=== PATIENT | male | born 1980 | race Asian ===

== ENCOUNTER 2025-09-15 10:47 | Outpatient (AMB) | payer OTHER, SELFPAY ==
[2025-09-15 10:51] VITALS: BMI 24.3
--- NOTE | 2025-09-15 10:51 | A.PHYSOV_ITS ---
Vital Signs 09/15/25 10:51 Height 5 ft 8 in Weight 160 lb BMI 24.3 Intake Visit Reasons: NPV CHRONIC MIDLINE LOW BACK PAIN W/OUT SCIATICA Intake Note: Patient a 45 year old patient in office today as a new patient for mid line low back pain. Automatic Centrifugal Station Operator Required: No Allergies No Known Allergies Allergy (Verified 09/15/25 10:50) HPI Comments Details: History of Present Illness The patient is a 45-year-old individual presenting with chronic low back pain and sciatica. The patient reports experiencing low back pain for approximately eight months, which began as a pinching sensation and has progressively worsened. The pain is primarily located in the lumbar region and is exacerbated by activities such as bending and applying pressure. The patient describes the pain as persistent and irritating, with occasional radiation down both legs, predominantly affecting the right side. The patient has been undergoing physical therapy for over two months, which has provided some relief but not complete resolution of symptoms. The patient has also visited urgent care and has been prescribed painkillers, although the patient prefers to avoid medications like ibuprofen unless the pain is severe. Pain is rated 8/10 at the worst moments. The patient has a history of prediabetes, which is being managed with dietary modifications, although adherence is inconsistent. There is a family history of back surgeries, although the patient has not undergone any surgical interventions. Pain Description - Onset: Approximately eight months ago - Quality: Pinching, persistent, irritating - Location: Lumbar region, with radiation to both legs, predominantly the right - Exacerbating factors: Bending, applying pressure - Relieving factors: Physical therapy provides some relief Results - Imaging: X-rays did not reveal significant findings [facility] Medical History (Updated 09/15/25 @ 11:16 by Kolby Shearer DO) Lumbar radiculitis Lumbar disc herniation Surgical History (Updated 09/11/25 @ 09:05 by Lucinda Martin MA) History of nasal surgery Social History (Updated 09/11/25 @ 09:08 by Lucinda Martin MA) Household Members: Spouse Alcohol intake: current Alcohol intake frequency: does not drink Patient Tobacco Use Status: Never used Tobacco Current occupational status: employed Review of Systems Narrative Review of Systems - Musculoskeletal: Reports persistent low back pain, occasional radiation to legs - Endocrine: Reports prediabetes Denies change in bowel bladder habits, denies fever or chills, denies uncontrolled depression or suicidal ideation Physical Exam Exam Exam: Physical Exam - Musculoskeletal: Pain elicited upon bending and pressure application, particularly in the lumbar region - Neurological: Reflexes symmetric, mild weakness noted in big toe extension on the right side Increased tightness of the right hamstring muscles compared to the left hamstring muscles. Lumbar extension was slightly restricted. SI provocative maneuvers were negative. Pain with palpation over lower lumbar spinous processes. Patient demonstrated no upper motor neuron signs. He was able to perform heel walk and toe walk. Gait was without antalgia. Vital Signs: BMI result Body Mass Index 24.3 Assessment & Plan Assessment & Plan (1) Lumbar disc herniation: Code(s): M51.26 - Other intervertebral disc displacement, lumbar region Category: Medical (2) Lumbar radiculitis: Code(s): M54.16 - Radiculopathy, lumbar region Category: Medical Plan Pain Management - Affect: Pain is persistent and irritating, impacting daily activities - Analgesia: Painkillers prescribed, patient prefers to avoid unless severe - Adverse Effects: None reported - Activities of Daily Living: Pain affects bending and pressure application activities - Aberrant Drug Related Behaviors: None reported Plan Patient was informed and verbally consented to the use of an ambient scribe for clinic note documentation during this visit. 1. Chronic Low Back Pain The patient has been experiencing chronic low back pain for approximately eight months, with symptoms exacerbated by bending and pressure application. Physical therapy has been initiated, providing some relief, but symptoms persist. An MRI of the lumbar spine has been ordered to further evaluate the underlying cause of the pain. 2. Sciatica The patient reports occasional radiation of pain to both legs, predominantly affecting the right side, consistent with sciatica. The MRI will help assess any nerve involvement contributing to these symptoms. 3. Prediabetes The patient has a history of prediabetes, with dietary modifications being inconsistently followed. Continued monitoring of blood glucose levels and adherence to dietary recommendations are advised. Discussion Notes I discussed with the patient the chronic nature of the low back pain and the potential for sciatica involvement. We reviewed the limited findings from the X- rays and the need for an MRI to better understand the underlying issues. I explained that the MRI would provide a clearer picture of any nerve involvement or structural abnormalities. We also discussed the importance of continuing physical therapy and monitoring prediabetes through dietary management. The patient was advised to schedule a follow-up appointment after the MRI results are available to discuss further management options. Patient Instructions - Continue with physical therapy sessions as scheduled. - Schedule an MRI at [facility] as discussed. - Monitor blood glucose levels and adhere to dietary recommendations for prediabetes management. - Follow up with the clinic after MRI results are available. Orders: Orders MR lumbar spine wo con Today M51.26 - Other intervertebral disc displacement, lumbar region, M54.16 - Radiculopathy, lumbar region Coding Level of Care Code Tele New Pt Level 4 (76207) Complex visit Add On G2211 Diagnoses Lumbar disc herniation M51.26 Lumbar radiculitis M54.16
--- OUTSIDE RECORDS SUMMARY | 2025-09-15 13:57 | XMS_ITS | Encounter Summary ---
Author Organization [facility] Address [address] [place] [address] Care Team Providers Care Senior Manufacturing Technician Name Role Phone Pavel Chirinos MD Primary Care Provider [phone] Encounter Details Date Type Department Care Team (Late Contact Info) Description 08/13/2025 Results Follow-Up Internal Medicine [address] [phone] Pavel Chirinos MD [address] [place] [phone] Social History Tobacco Use Types Packs/Day Years Used Date Smoking Tobacco: Never Smokeless Tobacco: Never Alcohol Use Standard Drinks/Week Comments Never 0 (1 standard drink = 0.6 oz pur e alcohol) Education Answer Date Recorded What is the highest level of school you have completed or the highest degree you have received? Bachelor's degree (e.g., BA, AB, BS) 07/31/2025 Sex and Gender Information Value Date Recorded Sex Assigned at Not on file Legal Sex Male 8:48 PM EST Gender Identity Not on file Sexual Orientation Not on file documented as of this encounter Plan of Treatment Upcoming Encounters Date Type Department Care Team (Late Contact Info) Description 02/01/2026 3:00 PM EDT Office Visit Internal Medicine [address] [phone] Pavel Chirinos MD [address] [place] [phone] documented as of this encounter Visit Diagnoses Not on filedocumented in this encounter Care Teams Senior Manufacturing Technician Relationship Specialty Start Date End Date Pavel Chirinos MD [address] [place] [phone] PCP - General 07/18/23 documented as of this encounter
--- OUTSIDE RECORDS SUMMARY | 2025-09-15 13:57 | XMS_ITS | Clinical Summary ---
Author Organization [facility], Address [address] [place] [address] [place] [address] Phone Care Team Providers Care It Infrastructure Manager Name Role Phone Pavel Chirinos Primary Care Provider [phone] Allergies No known active allergies Medications cyanocobalamin 2000 MCG tablet Take 2,000 mcg by mouth in the morning. 4 Active atorvastatin (LIPITOR) 20 MG tablet Take 20 mg by mouth in the morning. 4 Active ergocalciferol 1.25 MG (70242 UT) capsule Take 50,000 Units by mouth 1 (one) time per week Active pantoprazole (PROTONIX) 40 MG EC tablet Take 40 mg by mouth 1 (one) time each day before breakfast Do not crush, chew, or split. Active Active Problems Problem Noted Date Diagnosed Date Vitamin D deficiency 09/27/2023 Prediabetes 09/27/2023 Mixed hyperlipidemia 09/27/2023 Cobalamin deficiency 09/27/2023 Immunizations Immunization Administration Dates Next Due Moderna SARS-COV-2 10/24/2021,07/30/2021, 021 TD Preservative Free 02/10/2019 Tdap 06/24/2024 Family History Medical History Relation Comments Asthma Father Diabetes Mother Relation Status Comments Father Mother Social History Tobacco Use Types Packs/Day Years Used Date Smoking Tobacco: Never Smokeless Tobacco: Never Tobacco Cessation:Counseling Given: Not Answered Sex and Gender Information Value Date Recorded Sex Assigned at Not on file Legal Sex Male 2:27 PM EDT Gender Identity Not on file Sexual Orientation Not on file Plan of Treatment Upcoming Encounters Date Type Department Care Team (Late st Contact Info) Description 11/25/2025 1:30 PM EST Office Visit [facility], [address] [place] [phone] Filipe Werner MD [address] [place] [phone] Health Maintenance Due Date Last Done Comments Hepatitis B Vaccine (1 of 3 - 19+ 3-dose series) 04/23 Pneumococcal Vaccine: Peds ( 0 to 5 Years) and At-Risk Patients (6 to 49 Years) (1 of 2 - PCV) 2000 Influenza Vaccine (#1) 2025 Insurance [employer] Care Teams It Infrastructure Manager Relationship Specialty Start Date End Date Pavel Chirinos [address] [place] [phone] PCP - General 07/14/24
--- OUTSIDE RECORDS SUMMARY | 2025-09-15 13:57 | XMS_ITS | Encounter Summary ---
Author Organization [facility] Address [address] [place] [address] Care Team Providers Care Curer Foam Rubber Name Role Phone Pavel Chirinos MD Primary Care Provider [phone] Encounter Details Date Type Department Care Team ([facility] Contact Info) Description 08/12/2025 Results Follow-Up Internal Medicine - [place] [address] [facility] [address] [place] [phone] Pavel Chirinos MD [address] [place] [phone] Social History Tobacco Use Types Packs/Day Years [...] on file documented as of this encounter Ordered Prescriptions Prescription Sig Dispense Quantity Refills Last Filled Start Date End Date cholecalciferol (Vitamin D3) 50 mcg (2,000 unit) tablet Take 1 tablet (2,000 Units total) by mouth 1 (one) time each day. 90 tablet 3 08/12/2025 08/12/2026 documented in this encounter Plan of Treatment Upcoming Encounters Date Type Department Care Team ([facility] Contact Info) Description 02/01/2026 3:00 PM EDT Office Visit Internal Medicine - [place] [address] [phone] Pavel Chirinos MD [address] [place] [phone] documented as of this encounter Visit Diagnoses Not on filedocumented in this encounter Care Teams Curer Foam Rubber Relationship Specialty Start Date End Date Pavel Chirinos MD [address] [phone] PCP - General 07/18/23 documented as of this encounter
--- OUTSIDE RECORDS SUMMARY | 2025-09-15 13:57 | XMS_ITS | Encounter Summary ---
Author Organization [facility] Address [address] [place] [address] Phone Care Team Providers Care Slate Roofer Name Role Phone Pavel Chirinos Primary Care Provider [phone] Encounter Details Date Type Department Care Team (Late Contact Info) Description 07/14/2024 Documentation Only [facility] [address] [place] [address] Saida Pedroza [place] [address] [place] [phone] Social History Tobacco Use Types Packs/Day Years Used Date Smoking Tobacco: Never Assessed Sex and Gender Information Value Date Recorded Sex Assigned at Not on file Legal Sex Male 2:27 PM EDT Gender Identity Not on file Sexual Orientation Not on file documented as of this encounter Plan of Treatment Upcoming Encounters Date Type Department Care Team (Late Contact Info) Description 11/25/2025 1:30 PM EST Office Visit [facility] [address] [place] [address] Filipe Werner MD [address] [place] [phone] documented as of this encounter Visit Diagnoses Not on filedocumented in this encounter Care Teams Slate Roofer Relationship Specialty Start Date End Date Pavel Chirinos [address] [place] [phone] PCP - General 07/14/24 documented as of this encounter
--- OUTSIDE RECORDS SUMMARY | 2025-09-15 13:57 | XMS_ITS | Clinical Summary ---
Author Organization Patient Business Ser [facility] [place] Address [address] [place] [address] Care Team Providers Care Sandblaster Stone Name Role Phone Pavel Chirinos MD Primary Care Provider [phone] Allergies No known active allergies Medications atorvastatin (LIPITOR) 20 mg tablet TAKE 1 TABLET BY MOUTH ONCE DAILY 90 tablet 3 5 Active hydrOXYzine HCL (ATARAX) 25 mg tablet Take 1 tablet (25 mg total) by mouth if needed for anxiety (insomnia). 30 tablet 3 5 Active cholecalciferol (Vitamin D3) 50 mcg (2,000 unit) tablet Take 1 tablet (2,000 Units total) by mouth 1 (one) time each day. 90 tablet 3 5 08/12/20 26 Active cyanocobalamin (VITAMIN B-12) 1,000 mcg tablet TAKE 2 TABLETS BY MOUTH EVERY DAY 180 tablet 3 5 Active cyanocobalamin (VITAMIN B-12) 2,000 mcg tablet Take 1 tablet (2,000 mcg total) by mouth 1 (one) time each day. 4 08/24/20 25 Discontinue d(Duplicate order) cyclobenzaprine (FLEXERIL) 5 mg tablet Take 1 tablet (5 mg total) by mouth 3 (three) times a day if needed for muscle spasms. 30 tablet 2 5 08/26/20 25 Active Problems Problem Noted Date Diagnosed Date B12 deficiency 09/27/2023 Mixed hyperlipidemia 09/27/2023 Prediabetes 09/27/2023 Vitamin D deficiency 09/27/2023 Encounters Date Type Department Care Team Description 08/13/2025 Results Follow-Up Internal Medicine - [facility] [address] [phone] Pavel Chirinos MD 08/12/2025 Results Follow-Up Internal Medicine - [facility] 175 [facility] [address] [place] [address] Pavel Chirinos MD 08/11/2025 3:08 PM EDT - 08/11/2025 11:59 PM EDT Hospital Encounter Xray [address] [place] [phone] Chronic midline low back pain without sciatica Discharge Disposition: Home or Self Care 07/31/2025 8:30 AM EDT Office Visit Internal Medicine [facility] [address] [phone] Pavel Chirinos MD Encounter for annual physical exam (Primary Dx); Mixed hyperlipidemia; Prediabetes; Other fatigue; Vitamin D deficiency; B12 deficiency; Chronic midline low back pain without sciatica; Chronic right shoulder pain; Insomnia, unspecified type; Need for prophylactic vaccination and inoculation against influenza 07/09/2025 Telephone Internal Medicine - [facility] [address] [phone] Judy Enamorado MA from Last 3 Months Immunizations Immunization Administration Dates Next Due Influenza trivalent, MDCK, 0 .5mL, preservative free (Flucelvax) 6mo and older 07/31/2025 Moderna SARS-CoV-2 COVID-19, mRNA, LNP-S, preservative free 10/24/2021,07/30/2021,02/12/2021 Tdap Tetanus diptheria acell ular pertussis (Boostrix; Adacel) 7yo and older 06/24/2024 Surgical History Surgery Date Site/Laterality Comments OTHER SURGICAL HISTORY N/A PROCEDURE: HISTORY OTHER; COMMENT: nasal surgery Medical History Medical History Date Comments Mixed hyperlipidemia 09/27/2023 DX:Mixed hy perlipidemia Vitamin D deficiency 09/27/2023 DX:Vitamin D deficiency Prediabetes 09/27/2023 DX:Prediabetes Family History Medical History Relation Name Comments Asthma Father Diabetes Mother Other: hld, Mother Relation Name Status Comments Father Alive Maternal Grandfather Maternal Grandmother Mother Alive Paternal Grandfather Paternal Grandmother Social History Tobacco Use Types Packs/Day Years [...] on file Sexual Orientation Not on file Obstetrics History Last Filed Vital Signs Vital Sign Reading Time Taken Comments Blood Pressure 102/70 07/31/2025 8:17 AM EDT Pulse 74 07/31/2025 8:17 AM EDT Temperature 36.6 C (97.8 F) 07/31/2025 8:17 AM EDT Respiratory Rate - - Oxygen Saturation 97% 07/31/2025 8:17 AM EDT Inhaled Oxygen Concentration - - Weight 81.6 kg (180 lb) 07/31/2025 8:17 AM EDT Height 172.7 cm (5' 8 ) 07/28/2024 2:23 PM EDT Body Mass Index 27.37 07/28/2024 2:23 PM EDT Plan of Treatment Upcoming Encounters Date Type Department Care Team (Late st Contact Info) Description 02/01/2026 3:00 PM EDT Office Visit Internal Medicine - [address] [place] [address] Pavel Chirinos MD [address] [place] [phone] Health Maintenance Due Date Last Done Comments Hepatitis B Vaccines (1 of 3 - 19+ 3-dose series) 2000 HPV Vaccines (1 - 3-dose SCDM series) 2008 HIV Screening 09/27/2023 COVID-19 Vaccine ( season) 2025 10/24/2021, 07/30/2021, 03/12/2021, Additional history exists Depression Screening 10/21/2025 Postpon ed from 10/22/2024 (Not clinically appropriate to address at this time) Social Influencers of Health Screening 07/31/2026 07/31/2025 Cholesterol Screening (Lipid Panel) 08/11/2030 08/11/2025, 06/25/2024, 06/25/2024 DTaP,Tdap,and Td Vaccines (3 - Td or Tdap) 06/24/2034 06/24/2024, 02/10/2019 RSV Immunization Adult Patients (1 - 1-dose 75+ series) 2056 Hepatitis C Screening Completed 09/26/2023 Influenza Vaccine Completed 07/31/2025 HIB Vaccines Aged Out No longer eligi ble based on patient's age to complete this topic Hepatitis A Vaccines Aged Out No long er eligible based on patient's age to complete this topic IPV Vaccines Aged Out No longer eligi ble based on patient's age to complete this topic MMR Vaccines Aged Out No longer eligi ble based on patient's age to complete this topic Meningococcal ACWY Vaccine Aged Out N o longer eligible based on patient's age to complete this topic Meningococcal B Vaccine Aged Out No l onger eligible based on patient's age to complete this topic Pneumococcal Vaccine: Pediatrics (0 to 5 Years) and At-Risk Patients (6 to 49 Years) Aged Out No longer eligible b ased on patient's age to complete this topic RSV Immunization Patients Under 20 months Aged Out No longer eligible b ased on patient's age to complete this topic Varicella Vaccines Aged Out No longer eligible based on patient's age to complete this topic Procedures Procedure Name Priority Date/Time Associated Diagnosis Comments XR LUMBAR SPINE 4+ VIEWS Routine 08/11/2025 3:22 PM EDT Chronic midline low back pain without sciatica CBC WITH AUTO DIFFERENTIAL Routine 08/11/2025 2:51 PM EDT Encounter for annual physical exam Prediabetes Mixed hyperlipidemia HEMOGLOBIN A1C Routine 08/11/2025 2:51 PM EDT Encounter for annual physical exam Prediabetes Mixed hyperlipidemia VITAMIN D 25 HYDROXY Routine 08/11/2025 2:51 PM EDT Encounter for annual physical exam Prediabetes Vitamin D deficiency Mixed hyperlipidemia THYROID STIMULATING HORMONE WITH REFLEX TO FREE T4 AND FREE T3 Routine 08/11/2025 2:51 PM EDT Encounter for annual physical exam Prediabetes Mixed hyperlipidemia VITAMIN B12 Routine 08/11/2025 2:51 PM EDT Encounter for annual physical exam Prediabetes B12 deficiency Mixed hyperlipidemia COMPREHENSIVE METABOLIC PANEL Routine 08/11/2025 2:51 PM EDT Encounter for annual physical exam Prediabetes Mixed hyperlipidemia LIPID PANEL WITH REFLEX TO DIRECT LDL Routine 08/11/2025 2:51 PM EDT Encounter for annual physical exam Prediabetes Mixed hyperlipidemia CBC AND DIFFERENTIAL Routine 08/11/2025 2:51 PM EDT Encounter for annual physical exam Prediabetes Mixed hyperlipidemia HEPATITIS C SCREENING Routine 09/26/2023 from Last 3 Months or Most Recently Relevant to Health Maintenance Results * XR Lumbar Spine 4+ Views (08/11/2025 3:22 PM EDT) Anatomical Region Laterality Modality Spine, L-spine Radiographic Cary ging 08/13/2025 7:38 AM EDT Impressions 08/13/2025 7:39 AM EDT Limited range of motion. Otherwise, normal examination. There is no abnormal relative bony motion with flexion and extension. Code 31246 -------- FINAL REPORT -------- Dictated By: Scotty Woods Dictated Date: 08/13/2025 07:38 ET Assigned Physician: Scotty Woods Reviewed and Electronically Signed By: Scotty Woods Signed Date: 08/13/2025 07:39 ET Workstation ID: [id number] Transcribed By: Self Edit Transcribed Date: 08/13/2025 07:38 ET Narrative 08/13/2025 7:39 AM EDT HISTORY: The patient is a 45-year-old male with low back pain. No history of trauma is provided. FINDINGS: Lateral views of the lumbosacral spine in neutral, flexion, extension positions, along with an AP view, are obtained. The study demonstrates normal alignment of the bony structures. There is no abnormal relative bony motion with flexion and extension. Range of motion is limited. No fracture is seen and there is no osteolytic or osteoblastic lesion. The disc spaces are well-maintained. Procedure Note Scotty Woods MD - 08/13/2025 HISTORY: The patient is a 45-year-old male with low back pain. No historyof trauma is provided. FINDINGS: Lateral views of the lumbosacral spine in neutral, flexion,extension positions, along with an AP view, are obtained. The studydemonstrates normal alignment of the bony structures. There is no abnormalrelative bony motion with flexion and extension. Range of motion islimited. No fracture is seen and there is no osteolytic or osteoblasticlesion. The disc spaces are well-maintained. IMPRESSION: Limited range of motion. Otherwise, normal examination. There is noabnormal relative bony motion with flexion and extension. Code 03174 -------- FINAL REPORT -------- Dictated By: Scotty Woods Dictated Date: 08/13/2025 07:38 ET Assigned Physician: Scotty Woods Reviewed and Electronically Signed By: Scotty Woods Signed Date: 08/13/2025 07:39 ET Workstation ID: [id number] Transcribed By: Self Edit Transcribed Date: 08/13/2025 07:38 ET us Pavel Chirinos MD IMG XR PROCEDURES Final Result * Thyroid stimulating hormone with reflex to free t4 and free t3 (08/11/2025 2:51 PM EDT) TSH 2.10 0.40 - 4.00 mcIU/mL LAB CHEMISTRY METHOD 08/11/2025 7:51 PM EDT [facility] Blood Venous blood specimen / Unknown Venipuncture / Unknown 08/11/2025 2:51 PM EDT 08/11/2025 2:51 PM EDT Pavel Chirinos MD LAB BLOOD ORDERABLES Final Resul t Performing Organization Address City/[facility]/ZIP Co de Phone Number [facility] [address] [place] [address], [place] [phone] * Lipid panel with reflex to direct LDL (08/11/2025 2:51 PM EDT) Cholesterol 150 0 - 200 mg/dL LAB CHEMISTRY METHOD 08/11/2025 7:[address] [facility] Triglycerides 110 0 - 150 mg/dL LAB CHEMISTRY METHOD 08/11/2025 7:[address] [facility] HDL 50 >=40 mg/dL LAB CHEMISTRY METHOD 08/11/2025 7:[address] [facility] LDL Calculated 78 0 - 100 mg/dL LAB CHEMISTRY METHOD 08/11/2025 7:[address] [facility] Comment:Estimated LDL Calcul ated using equation: Total cholesterol - HDL cholesterol - (Triglycerides/5) VLDL Cholesterol Dameon 22 mg/dL LAB CHEMISTRY METHOD 08/11/2025 7:[address] [facility] Non HDL Chol. (LDL+VLDL) 100 <145 mg/dL LAB CHEMISTRY METHOD 08/11/2025 7:[address] [facility] Chol/HDL Ratio 3.0 0.0 - 4.4 LAB CHEMISTRY METHOD 08/11/2025 7:[address] [facility] Blood Venous blood specimen / Unknown Venipuncture / Unknown 08/11/2025 2:51 PM EDT 08/11/2025 2:51 PM EDT Pavel Chirinos MD LAB BLOOD ORDERABLES Final Resul t Performing Organization Address City/[facility]/ZIP Co de Phone Number [facility] [address] [place] [address], [place] [phone] * (ABNORMAL) CBC auto differential (08/11/2025 2:51 PM EDT) [facility] WBC 7.0 4.8 - 10.8 K/mcL LAB HEMETOLOGY METHOD 08/11/2025 6:[address] [facility] RBC 5.00 4.50 - 5.50 M/mcL LAB HEMETOLOGY METHOD 08/11/2025 6:[address] [facility] Hemoglobin 14.3 13.5 - 17.5 g/dL LAB HEMETOLOGY METHOD 08/11/2025 6:[address] [facility] Hematocrit 44.8 42.0 - 54.0 % LAB HEMETOLOGY METHOD 08/11/2025 6:[address] [facility] MCV 89.6 79.0 - 98.0 FL LAB HEMETOLOGY METHOD [facility]/11[facility]2025 [facility] MCH 28.6 27.0 - 32.0 pcg LAB HEMETOLOGY METHOD 08/11/2025 6:12 [facility] MCHC 31.9(L) 32.0 - 37.0 g/dL LAB HEMETOLOGY METHOD 08/11/2025 6:12 [facility] RDW 12.7 11.0 - 15.0 % LAB HEMETOLOGY METHOD 08/11/2025 6:[address] [facility] Platelets 260 130 - 400 K/mcL LAB HEMETOLOGY METHOD 08/11/2025 6:[address] [facility] MPV 10.1 7.0 - 11.0 FL LAB HEMETOLOGY METHOD 08/11/2025 6:12 [facility] NRBC 0.0 <1.0 % LAB HEMETOLOGY METHOD 08/11/2025 6:[address] [facility] NRBC Absolute 0.00 <0.10 K/mcL LAB HEMETOLOGY METHOD 08/11/2025 6:[address] [facility] Neutrophils Relative 38.8 % LAB HEMETOLOGY METHOD 08/11/2025 6:[address] [facility] Lymphocytes Relative 48.1 % LAB HEMETOLOGY METHOD 08/11/2025 6:[address] [facility] Monocytes Relative 8.0 % LAB HEMETOLOGY METHOD 08/11/2025 6:[address] [facility] Eosinophils Relative 4.6 % LAB HEMETOLOGY METHOD 08/11/2025 6:[address] [facility] Basophils Relative 0.4 % LAB HEMETOLOGY METHOD 08/11/2025 6:12 PM [facility] Immature Granulocytes Relative 0.1 % LAB HEMETOLOGY METHOD 08/11/2025 6:12 [facility] Neutrophils Absolute 2.73 1.50 - 7.00 K/mcL LAB HEMETOLOGY METHOD 08/11/2025 6:[address] [facility] Lymphocytes Absolute 3.38 1.00 - 5.00 K/mcL LAB HEMETOLOGY METHOD 08/11/2025 6:12 PM [facility] Monocytes Absolute 0.56 0.20 - 1.00 K/mcL LAB HEMETOLOGY METHOD 08/11/2025 6:[address] [facility] Eosinophils Absolute 0.32 0.00 - 0.50 K/mcL LAB HEMETOLOGY METHOD 08/11/2025 6:[address] [facility] Basophils Absolute 0.03 0.00 - 0.20 K/mcL LAB HEMETOLOGY METHOD 08/11/2025 6:12 PM [facility] Immature Granulocytes Absolute 0.01 0.00 - 0.03 K/mcL LAB HEMETOLOGY METHOD 08/11/2025 6:[address] [facility] Blood Venous blood specimen / Unknown Venipuncture / Unknown 08/11/2025 2:51 PM EDT 08/11/2025 2:51 PM EDT us Pavel Chirinos MD LAB BLOOD ORDERABLES Final Resul t Performing Organization Address City/[facility]/ZIP Co de Phone Number [facility] [address] [place] [address], [place] [phone] * (ABNORMAL) Vitamin D 25 hydroxy (08/11/2025 2:51 PM EDT) Vit D, 25-Hydroxy 18.6(L) 30.0 - 80.0 ng/mL LAB CHEMISTRY METHOD 08/11/2025 7:[address] [facility] Blood Venous blood specimen / Unknown Venipuncture / Unknown 08/11/2025 2:51 PM EDT 08/11/2025 2:51 PM EDT Pavel Chirinos MD LAB BLOOD ORDERABLES Final Resul t Performing Organization Address [facility] Co de Phone Number [facility] [address] [place] [address], [place] [phone] * Hemoglobin A1c (08/11/2025 2:51 PM EDT) Hemoglobin A1C 6.4 <6.5 % LAB CHEMISTRY METHOD 08/12/2025 12:[address] [facility] Mean Bld Glu Estim. 137 mg/dL LAB CHEMISTRY METHOD 08/12/2025 12:[address] [facility] Blood Venous blood specimen / Unknown Venipuncture / Unknown 08/11/2025 2:51 PM EDT 08/11/2025 2:51 PM EDT Pavel Chirinos MD LAB BLOOD ORDERABLES Final Resul t Performing Organization Address City/State/[facility] Co de Phone Number [facility] [address] [place] [address], [place] [phone] * Vitamin B12 (08/11/2025 2:51 PM EDT) [facility] Vitamin B-12 610 250 - 900 pcg/mL LAB CHEMISTRY METHOD 08/11/2025 7:[address] [facility] Blood Venous blood specimen / Unknown Venipuncture / Unknown 08/11/2025 2:51 PM EDT 08/11/2025 2:51 PM EDT Pavel Chirinos MD LAB BLOOD ORDERABLES Final Resul t Performing Organization Address [facility] Co de Phone Number [facility] [address] [place] [address], [place] [phone] * Comprehensive metabolic panel (08/11/2025 2:51 PM EDT) [facility] Sodium 139 133 - 145 mmol/L LAB CHEMISTRY METHOD 08/11/2025 7:[address] [facility] Potassium 4.5 3.5 - 5.5 mmol/L LAB CHEMISTRY METHOD 08/11/2025 7:23 PM [facility] Chloride 109 96 - 110 mmol/L LAB CHEMISTRY METHOD 08/11/2025 7:[address] [facility] CO2 27 21 - 32 mmol/L LAB CHEMISTRY METHOD 08/11/2025 7:[address] [facility] Anion Gap 3 3 - 11 LAB CHEMISTRY METHOD 08/11/2025 7:23 PM [facility] Glucose 91 70 - 100 mg/dL LAB CHEMISTRY METHOD 08/11/2025 7:23 PM [facility] BUN 13 5 - 25 mg/dL LAB CHEMISTRY METHOD 08/11/2025 7:[address] [facility] Creatinine 1.15 0.70 - 1.30 mg/dL LAB CHEMISTRY METHOD 08/11/2025 7:23 PM [facility] eGFR 80 >=60 mL/min/1. 73m2 LAB CHEMISTRY METHOD 08/11/2025 7:23 PM [facility] Comment:Calculation based on the Chronic Kidney Disease Epidemiology Collaboration (CKD-EPI) equation refit without adjustment for race. BUN/Creatinine Ratio 11.3 LAB CHEMISTRY METHOD 08/11/2025 7:23 PM [facility] Calcium 9.8 8.5 - 10.5 mg/dL LAB CHEMISTRY METHOD 08/11/2025 7:23 PM [facility] AST (SGOT) 24 10 - 42 unit/L LAB CHEMISTRY METHOD 08/11/2025 7:23 PM [facility] ALT (SGPT) 46 10 - 60 unit/L LAB CHEMISTRY METHOD 08/11/2025 7:23 PM [facility] Alkaline Phosphatase 81 42 - 121 unit/L LAB CHEMISTRY METHOD 08/11/2025 7:23 PM [facility] Total Protein 7.3 6.0 - 8.0 g/dL LAB CHEMISTRY METHOD 08/11/2025 7:23 PM [facility] Albumin 4.4 3.2 - 5.0 g/dL LAB CHEMISTRY METHOD 08/11/2025 7:23 PM [facility] Total Bilirubin 0.9 0.0 - 1.4 mg/dL LAB CHEMISTRY METHOD 08/11/2025 7:23 PM [facility] Blood Venous blood specimen / Unknown Venipuncture / Unknown 08/11/2025 2:51 PM EDT 08/11/2025 2:51 PM EDT us Pavel Chirinos MD LAB BLOOD ORDERABLES Final Resul t [facility] [address] [place] [address], * Hepatitis C Screening (09/26/2023) Hepatitis C Screening abstracted Historical Provider HEALTH MAINTENANCE Final Result from Last 3 Months or Most Recently Relevant to Health Maintenance Insurance [facility] PUBLIC PLANS Care Teams Sandblaster Stone Relationship Specialty Start Date End Date Pavel Chirinos MD [address] [phone] PCP - General 07/18/23
== END 2025-09-15 11:32 | disposition home or self-care (01) ==
LOC: HO.HPHYS 10:47
PROVIDERS: PCP Student in an Organized Health Care Education/Training Program; Visit Provider Physical Medicine & Rehabilitation
DX: M51.26 Other intervertebral disc displacement, lumbar region (principal); M54.16 Radiculopathy, lumbar region
CPT/HCPCS: 99204

== ENCOUNTER → 2025-09-15 10:47 | Outpatient (BNVA) | payer OTHER, SELFPAY | PROVIDERS: PCP Student in an Organized Health Care Education/Training Program; Visit Provider Physical Medicine & Rehabilitation | DX: M51.26 Other intervertebral disc displacement, lumbar region (principal); M54.16 Radiculopathy, lumbar region | CPT/HCPCS: 99202 ==